=== PATIENT | male | born 1995 | race Caucasian/White ===

== ENCOUNTER 2022-01-20 22:19 | Emergency (ER) | payer BC ==
[~2022-01-20] VITALS: Ht 175.3 cm; Wt 72.6 kg
[2022-01-20 22:20] VITALS: BP 122/79
--- NOTE | 2022-01-20 22:24 | NUR ---
PT OFFLOADED TO [facility]
--- NOTE | 2022-01-20 23:43 | NUR ---
EXAMINED BY DR MARTINEZ
[2022-01-20] MEDS ORDERED: LIDOCAINE/EPI MPF 1%1:200000 30 ML VIAL INJ ONE (23:45)
[2022-01-20] MEDS ORDERED: cefTRIAXone 1,000 MG in LIDOCAINE MPF 1% 2.1 ML IM ONE (23:45)
--- NOTE | 2022-01-20 23:47 | NUR ---
PT AMBULTAED TO BED 9
[2022-01-21] MEDS ORDERED: BACITRACIN OINT 500 UNITS/GM PKT TP ONE
[2022-01-21] MEDS ORDERED: NAPR-54 PO (00:40)
[2022-01-21] MEDS ORDERED: AMOX1TAB8 PO (00:40)
[2022-01-21] MEDS ORDERED: cefTRIAXone 1,000 MG VIAL ONE (00:41)
[2022-01-21 00:50] VITALS: BP 122/79
--- NOTE | 2022-01-21 00:50 | NUR ---
Patient discharged with v/s stable. Written and verbal after care instructions given and explained. Patient alert, oriented and verbalized understanding of instructions. Ambulatory with steady gait. All questions addressed prior to discharge. ID band removed. Patient advised to follow up with PMD. Rx of AMOX-CLAV AND NAPROSYN given. Patient educated on indication of medication including possible reaction and side effects. Opportunity to ask questions provided and answered.
== END 2022-01-21 00:50 | disposition home or self-care (01) ==
LOC: MED 22:19
DX: S01.21XA Laceration without foreign body of nose, initial encounter (principal); S01.511A Laceration without foreign body of lip, initial encounter; W54.0XXA Bitten by dog, initial encounter; Y93.89 Activity, other specified; Y92.89 Other specified places as the place of occurrence of the external cause; Y99.8 Other external cause status
CPT/HCPCS: 12015; 90471; 90715; 96372; 99284; J0696; J2001